=== PATIENT | female | born 1975 | race African-American/Black ===

== ENCOUNTER 2017-10-05 15:56 | Observation (INO) | payer MEDICAID ==
[~2017-10-05] VITALS: Ht 165.1 cm; Wt 77.1 kg
[~2017-10-05 15:56] MED LIST: PRENATAL VITAMINS
== END 2017-10-05 18:00 | disposition home or self-care (01) ==
LOC: L&D 15:56
PROVIDERS: ADMIT Specialist; ATTEND Specialist
DX: O26.892 Other specified pregnancy related conditions, second trimester (principal); R10.30 Lower abdominal pain, unspecified; M79.89 Other specified soft tissue disorders; Z3A.27 27 weeks gestation of pregnancy
CPT/HCPCS: 99281; G0378; J7120

== ENCOUNTER 2018-02-04 14:50 | Emergency (ER) | payer MEDICAID ==
[~2018-02-04] VITALS: Ht 165.1 cm; Wt 72.0 kg
[2018-02-04] MEDS ORDERED: NIFE90TA2 PO (15:08)
[2018-02-04 16:32] VITALS: BP 144/88
== END 2018-02-04 16:34 | disposition home or self-care (01) ==
LOC: ER 14:50
DX: I10 Essential (primary) hypertension (principal); Z51.89 Encounter for other specified aftercare; Z98.890 Other specified postprocedural states
CPT/HCPCS: 81025; 99282